=== PATIENT | female | born 1980 | race Caucasian/White ===

== ENCOUNTER 2018-08-27 19:21 | Emergency (ER) | payer BC ==
[~2018-08-27] VITALS: Ht 165.1 cm; Wt 71.3 kg
[2018-08-27 19:22] VITALS: BP 124/80
== END 2018-08-27 19:59 | disposition left against medical advice (07) ==
LOC: ER 19:21
DX: J00 Acute nasopharyngitis [common cold] (principal); R05 Cough; R09.89 Other specified symptoms and signs involving the circulatory and respiratory systems; Z53.21 Procedure and treatment not carried out due to patient leaving prior to being seen by health care provider

== ENCOUNTER 2023-12-10 04:10 | Emergency (ER) | payer BC, OTHER ==
[~2023-12-10] VITALS: Ht 165.1 cm; Wt 72.7 kg
[~2023-12-10 04:10] MED LIST: MECL-302 PO; ONDA4TAB6 PO
[2023-12-10 04:19] VITALS: BP 144/89; PULSE 111; RESP 18; TEMP 99.6; O2SAT 100
[2023-12-10] MEDS ORDERED: DIPH-423 PO (07:45)
[2023-12-10] MEDS ORDERED: PRED50TA PO (07:45)
[2023-12-10] MEDS: predniSONE 20 mg tablet PO ONE (07:49)
[2023-12-10] MEDS: diphenhydrAMINE 25mg capsule PO ONE (07:49)
== END 2023-12-10 08:12 | disposition home or self-care (01) ==
LOC: ER 04:10
DX: R21 Rash and other nonspecific skin eruption (principal); T36.8X5A Adverse effect of other systemic antibiotics, initial encounter; Z88.2 Allergy status to sulfonamides; Z79.899 Other long term (current) drug therapy; Y92.89 Other specified places as the place of occurrence of the external cause
CPT/HCPCS: 99283; J7512; Q0163

== ENCOUNTER 2024-06-12 12:02 | Emergency (ER) | payer BC, OTHER ==
[~2024-06-12] VITALS: Ht 165.1 cm; Wt 74.7 kg
[~2024-06-12 12:02] MED LIST changes: +DIPH-423 PO; +PRED50TA PO
[2024-06-12 12:52] LABS: BASOPHILS % (AUTO) 0.4 % (0-1); EOSINOPHILS # (AUTO) 0.1 X10'3 (0-0.9); EOSINOPHILS % (AUTO) 1.3 % (0-6); HEMATOCRIT 43.6 % (35.0-45.0); LYMPHOCYTES # (AUTO) 1.5 X10'3 (1.1-4.8); LYMPHOCYTES % (AUTO) 25.9 % (21-51); MEAN CORPUSCULAR HEMOGLOBIN 34.6 PG (27.0-31.0); MEAN CORPUSCULAR HGB CONC 34.5 g/dL (33.0-36.5); MEAN CORPUSCULAR VOLUME 100.4 FL (78-98); MEAN PLATELET VOLUME 7.8 FL (7.4-10.4); MONOCYTES # (AUTO) 0.3 X10'3 (0-0.9); MONOCYTES % (AUTO) 5.7 % (2-12); NEUTROPHILS % (AUTO) 66.7 % (42-75); PLATELET COUNT 242 X10'3 (140-440); RED BLOOD COUNT 4.34 X10'6 (4.20-5.60); RED CELL DISTRIBUTION WIDTH 12.9 % (11.5-14.5); WHITE BLOOD COUNT 5.9 X10'3 (4.5-11.0)
[2024-06-12 13:05] LABS: ALANINE AMINOTRANSFERASE 18 U/L (12-78); ALBUMIN/GLOBULIN RATIO 1.1 (1.1-1.5); ALKALINE PHOSPHATASE 55 IU/L (46-116); ANION GAP 6 (8-16); ASPARTATE AMINO TRANSFERASE 15 U/L (10-37); BILIRUBIN,TOTAL 0.9 MG/DL (0.1-1.0); BLOOD UREA NITROGEN 5 MG/DL (7-18); BUN/CREATININE RATIO 7.6 (10.0-20.0); CALCIUM 8.8 MG/DL (8.5-10.1); CHLORIDE 104 MMOL/L (99-107); CREATININE 0.66 MG/DL (0.40-0.90); GLUCOSE 143 MG/DL (70-104); POTASSIUM 3.4 MMOL/L (3.5-5.1); SODIUM 138 MMOL/L (135-145); TOTAL CARBON DIOXIDE 28.1 MMOL/L (24-32); TOTAL PROTEIN 7.5 G/DL (6.4-8.2); eCRCL 96 ML/MIN; eGFR > 90 ML/MIN
[2024-06-12 13:14] LABS: PRO BRAIN NATRIURETIC PEPTIDE < 30 PG/ML (0-125)
[2024-06-12] MEDS: potassium Cl 20 mEq SR tablet PO STA (15:32)
[2024-06-12 15:44] VITALS: BP 113/76; PULSE 84; RESP 15; TEMP 98; O2SAT 98
== END 2024-06-12 15:47 | disposition home or self-care (01) ==
LOC: ER 12:03
DX: R42 Dizziness and giddiness (principal); R00.0 Tachycardia, unspecified; E87.6 Hypokalemia; F41.8 Other specified anxiety disorders; Z88.2 Allergy status to sulfonamides; Z79.899 Other long term (current) drug therapy; F41.9 Anxiety disorder, unspecified; F32.A Depression, unspecified
CPT/HCPCS: 36415; 71045; 80053; 83880; 84484; 85025; 93005; 99285